=== PATIENT | female | born 1995 | race Two or more races ===

== ENCOUNTER 2022-03-14 06:10 | Inpatient (IN) | payer OTHER ==
[~2022-03-14] VITALS: Ht 165.1 cm; Wt 74.4 kg
[2022-03-14] MEDS ORDERED: PRENATAL TABLE1 EAC1 PO (06:34)
[2022-03-14] MEDS ORDERED: IRON325 MG PO (06:34)
== END 2022-03-16 12:56 | disposition home or self-care (01) | DRG 807 ==
LOC: LDR 06:10 → OB/GYN 06:10 → LDR 09:40 → OB/GYN 23:23
PROVIDERS: ADMIT Obstetrics & Gynecology; ATTEND Obstetrics & Gynecology
PROC: 10E0XZZ Delivery of Products of Conception, External Approach (ICD-10-PCS; principal; 2022-03-14)
PROC: 0KQM0ZZ Repair Perineum Muscle, Open Approach (ICD-10-PCS; 2022-03-14)
PROC: 4A1HXCZ Monitoring of Products of Conception, Cardiac Rate, External Approach (ICD-10-PCS; 2022-03-14)
DX: O70.1 Second degree perineal laceration during delivery (principal); Z37.0 Single live birth; Z3A.40 40 weeks gestation of pregnancy; Z20.822 Contact with and (suspected) exposure to COVID-19